=== PATIENT | female | born 1985 | race Hispanic/Latino ===

== ENCOUNTER → 2023-06-05 06:33 | Outpatient (REF) | payer OTHER, SELFPAY ==
[2023-06-05 08:03] LABS: Vitamin D, 25-OH*** 30.4 ng/mL (30-80)
== END ==
LOC: CLINIC 06:33
PROVIDERS: ATTENDING PHYSICIAN Nurse Practitioner Adult Health
DX: E55.9 Vitamin D deficiency, unspecified (principal)
CPT/HCPCS: 36415; 82306

== ENCOUNTER → 2023-07-04 17:25 | Outpatient (REF) | payer OTHER, SELFPAY ==
[2023-07-16 09:02] LABS: HPV, High Risk Not Detected; HPV, High Risk Source Cervical
== END ==
LOC: CLINIC 17:25
PROVIDERS: ATTENDING PHYSICIAN Nurse Practitioner Adult Health
DX: Z12.4 Encounter for screening for malignant neoplasm of cervix (principal)
CPT/HCPCS: 87624

== ENCOUNTER → 2024-02-15 08:49 | Outpatient (REF) | payer SELFPAY | LOC: WDC 08:49 | PROVIDERS: ATTENDING PHYSICIAN Internal Medicine | DX: N63.23 Unspecified lump in the left breast, lower outer quadrant (principal) | CPT/HCPCS: 76642; 77062; 77066 ==

== ENCOUNTER → 2024-03-13 06:47 | Outpatient (REF) | payer OTHER, SELFPAY ==
--- NOTE | 2024-03-13 08:51 | OID.BR.INTR ---
[facility] Breast Navigator - Initial
- -
Date of Contact: 03/13/24
Met with patient. Patient given written information on navigator services available at [facility]. Will follow up as needed per protocol.
== END ==
LOC: WDC 06:47
PROVIDERS: ATTENDING PHYSICIAN Internal Medicine
DX: R92.1 Mammographic calcification found on diagnostic imaging of breast (principal)
CPT/HCPCS: 88305; 19081; 76098; 88341; 88342; 88360; A4648